=== PATIENT | female | born 1945 | race Asian ===

== ENCOUNTER 2024-03-02 23:25 | Emergency (ER) | payer MEDICARE, OTHER ==
[~2024-03-02] VITALS: Ht 157.5 cm; Wt 60.0 kg
[2024-03-02 23:30] VITALS: O2SAT 98
[2024-03-03] MEDS ORDERED: HYDROCODONE/ACETAMINOPHEN 5/325MG TABLET PO ONE
[2024-03-03] MEDS ORDERED: HYDRALAZINE 20MG/ML VIAL IV ONE (01:00)
[2024-03-03] MEDS: HYDRALAZINE 20MG/ML VIAL IV NR (02:45)
[2024-03-03] MEDS: HYDROCODONE/ACETAMINOPHEN 5/325MG TABLET PO NR (02:45)
[2024-03-03] MEDS: HYDRALAZINE HCL 25MG TABLET PO ONE (02:55)
[2024-03-03 03:47] LABS: CLARITY URINE CLEAR (CLEAR); COLOR URINE YELLOW (YELLOW); GLUCOSE URINE NEGATIVE (NEGATIVE); KETONES URINE NEGATIVE (NEGATIVE); LEUKOCYTE ESTERASE URINE NEGATIVE (NEGATIVE); NITRITE URINE NEGATIVE (NEGATIVE); OCCULT BLOOD URINE NEGATIVE (NEGATIVE); PH URINE 7.5 (4.5-8.0); PROTEIN URINE NEGATIVE (NEGATIVE); UROBILINOGEN URINE 0.2 E.U./dL (0.2-1.0)
[2024-03-03 05:24] VITALS: BP 159/83; PULSE 71; RESP 16; TEMP 36.61404; O2SAT 98
== END 2024-03-03 05:24 | disposition home or self-care (01) ==
LOC: ER 23:25
DX: T20.10XA Burn of first degree of head, face, and neck, unspecified site, initial encounter (principal); I10 Essential (primary) hypertension; R41.82 Altered mental status, unspecified; X08.8XXA Exposure to other specified smoke, fire and flames, initial encounter; Y93.89 Activity, other specified; Y92.89 Other specified places as the place of occurrence of the external cause; Y99.8 Other external cause status; Z88.6 Allergy status to analgesic agent
CPT/HCPCS: 16000; 81003; 99284